=== PATIENT | male | born 1995 | race Hispanic/Latino ===

== ENCOUNTER 2018-03-05 09:00 | Emergency (ER) | payer OTHER ==
[2018-03-05 09:03] VITALS: BP 126/71; PULSE 61; RESP 20; TEMP 97.5; O2SAT 99
[2018-03-05 09:04] VITALS: BMI 28.8
--- NOTE | 2018-03-05 09:21 | ED PDOC ---
HPI: Male Pain Time Seen by Provider: 03/05/18 09:19 Chief Complaint (Nursing): Male Genitourinary Chief Complaint (Provider): TESTICULAR SWELLING History Per: Patient (22 Y/O MALE HERE WITH LEFT TESTICULAR SWELLING NOTED X 3 DAYS. WAS SEEN BY URGENT CARE THIS WEEK AND STARTED ON CIPRO. PATIENT DENIES ANY DYSURIA/HEMATURIA/URINARY FREQUENCY/FEVERS/CHILLS. STATES HE IS NOT CONCERNED FOR STD.) Past Medical History Reviewed: Historical Data, Nursing Documentation, Vital Signs Vital Signs: Last Vital Signs Temp 97.5 F L 03/05/18 09:03 Pulse 61 03/05/18 09:03 Resp 20 03/05/18 09:03 BP 126/71 03/05/18 09:03 Pulse Ox 99 03/05/18 09:03 - Family History Family History: States: No Known Family Hx - Home Medications Home Medications: Ambulatory Orders Medication Instructions Recorded Ibuprofen [Motrin] 600 mg PO Q8 PRN #21 tab 03/05/18 - Allergies Allergies/Adverse Reactions: Allergies Allergy/AdvReac Type Severity Reaction Status Date / Time No Known Allergies Allergy Verified 03/05/18 09:09 Review of Systems ROS Statement: Except As Marked, All Systems Reviewed And Found Negative Genitourinary Male: Positive for: Other (SCROTAL SWELLING LEFT) Physical Exam - Reviewed Nursing Documentation Reviewed: Yes Vital Signs Reviewed: Yes - Physical Exam Appears: Positive for: Well, Non-toxic, No Acute Distress Head Exam: Positive for: ATRAUMATIC, NORMAL INSPECTION, NORMOCEPHALIC Skin: Positive for: Normal Color, Warm, DRY Eye Exam: Positive for: EOMI, Normal appearance, PERRL ENT: Positive for: Normal ENT Inspection Neck: Positive for: Normal, Painless ROM Cardiovascular/Chest: Positive for: Regular Rate, Rhythm Respiratory: Positive for: CNT, Normal Breath Sounds Gastrointestinal/Abdominal: Positive for: Normal Exam, Soft Male Genital Exam: Positive for: testicular tenderness (L) (MILD), other (LEFT TESTICULAR SWELLING) Back: Positive for: Normal Inspection Extremity: Positive for: Normal ROM Neurologic/Psych: Positive for: Alert, Oriented - ECG O2 Sat by Pulse Oximetry: 99 - Progress ED Course And Treament: us scrotal: IMPRESSION: There is a large left-sided hydrocele that contains internal debris with overlying skin thickening. Rule out posttraumatic sequela. Tiny right-sided hydrocele. Both testicles and epididymi exhibit arterial flow Disposition - Clinical Impression Clinical Impression: Hydrocele - Patient ED Disposition Is Patient to be Admitted: No - Disposition Referrals: FAMILY PROVIDER,NO [Primary Care Provider] - Natan Granados MD [Medical Doctor] - Disposition: Routine/Home Disposition Time: 11:28 Condition: FAIR Additional Instructions: PLEASE FINISH ANTIBIOTIC (LEVAQUIN) PRESCRIBED BY URGENT CARE 5 DAYS PRIOR. Prescriptions: Ibuprofen [Motrin] 600 mg PO Q8 PRN #21 tab PRN Reason: Pain, Moderate (4-7) Instructions: Hydrocele
[2018-03-05 09:41] LABS: URINE BILIRUBIN NEGATIVE (NEGATIVE); URINE BLOOD NEGATIVE (NEGATIVE); URINE CLARITY CLEAR (Clear); URINE COLOR YELLOW (YELLOW); URINE GLUCOSE (UA) NEG (Normal); URINE LEUKOCYTE ESTERASE NEG Leu/uL (Negative); URINE PROTEIN NEGATIVE (NEGATIVE); URINE UROBILINOGEN 0.2-1.0 mg/dL (0.2-1.0)
--- NOTE | 2018-03-05 11:28 | US ---
Date of service: 03/05/2018 HISTORY: LEFT TESTICULAR SWELLING AND FULLNESS TECHNIQUE: Realtime sonography through the scrotum with color and doppler flow. COMPARISON: None Available. FINDINGS: RIGHT TESTICLE: Measures 5.5 x 2.8 x 4.2 cm. Normal echotexture and flow. RIGHT EPIDIDYMIS: Epididymal head measures 1.6 x 0.8 x 0.6 cm. Grossly unremarkable appearance with normal flow. LEFT TESTICLE: Measures 4.9 x 2.2 x 4.3 the the cm. Normal echotexture and flow. LEFT EPIDIDYMIS: Epididymal head measures 1.1 x 0.7 x 0.8 cm. Grossly unremarkable appearance with normal flow. HYDROCELE: Large left-sided hydrocele which contains internal echoes and debris.. Mid small right-sided hydrocele. VARICOCELE: None. OTHER FINDINGS: There is scrotal skin thickening left greater than right IMPRESSION: There is a large left-sided hydrocele that contains internal debris with overlying skin thickening. Rule out posttraumatic sequela. Tiny right-sided hydrocele. Both testicles and epididymi exhibit arterial flow
== END 2018-03-05 11:35 | disposition home or self-care (01) ==
LOC: SUPCPDRO 09:00 → H.ER 09:00
DX: N43.3 Hydrocele, unspecified (principal)